=== PATIENT | female | born 1945 | race Caucasian/White ===

== ENCOUNTER 2017-02-28 17:05 | Inpatient (IN) | payer OTHER ==
[~2017-02-28] VITALS: Ht 157.5 cm; Wt 60.8 kg
--- NOTE | ~2017-02-28 | EKG ---
[address] [address] ELECTROCARDIOGRAM REPORT Name: SUPA REDD Room #: 446-P ADM IN M.R.#: [id number] Admission: 02/28/17 Attend Phys: Robb Salas MD Discharge: Date of : 47 Report #: [id number] THIS REPORT FOR: //name// [facility] ED Test Date: 2017-02-28 Test Time: 17:41:00 Pat Name: SUPA REDD Department: Room: Counts include 234 beds at the [facility] Gender: F Cook Chill Technician: Tahi BEGUM : 1945 Requested By: Peter Schmitz Order Number: [id number] MD: Anibal Sheridan Measurements Intervals [place] Rate: 82 P: -15 ID: 135 QRS: 53 QRSD: 99 T: 23 QT: 434 QTc: 507 Interpretive Statements Sinus rhythm Prolonged QT interval No previous ECG available for comparison Electronically Signed On 03-01-2017 11:09:16 CDT by Anibal Sheridan [email or web address] <ELECTRONICALLY SIGNED> By: Anibal Sheridan MD 03/01/17 1109 1741 1741 Anibal Sheridan MD /FLORINA
--- NOTE | ~2017-02-28 | EEG ---
[facility] [place] [address] ELECTROENCEPHALOGRAM Name: SUPA REDD Room #: 446-P [facility] IN M.R.#: [id number] Admission: 02/28/17 Attend Phys: Kieran Bagley Discharge: 03/02/17 Date of : 47 Report #: [id number] THIS REPORT FOR: //name// CC: Blaze Alcazar DATE OF EE03/02/2017. This patient is being evaluated for altered mental status. EEG was done by placing the electrodes by standard 10-20 system of electrode placement. Both referential and sequential montages were used for recording. Background activity in this patient's EEG goes up to about 9 Hz and 20 microvolts. This is a symmetrical activity. This patient goes to sleep and that is associated with bilaterally symmetrical sleep spindle and vertex sharp waves. Photic stimulation is unremarkable. The patient's EEG is intermixed with some delta range slowing on both sides, even when the patient is awake. IMPRESSION: This patient's EEG demonstrates some delta range slowing on both sides which is intermixed with the patient's background activity. That has a nonspecific abnormality, which can occur with dementia, encephalopathy, effect of psychotropic medication, etc. Clinical correlation is recommended. Thank you very much for this referral. By: [id number] Jeffrey Reyna MD /scot
--- NOTE | ~2017-02-28 | D ---
[facility] [place] [address] DISCHARGE SUMMARY Name: SUPA REDD Room #: 446-P ADM IN M.R.#: [id number] Admission: 02/28/17 Attend Phys: Quan Alcazar MD Discharge: Date of : 47 Report #: [id number] THIS REPORT FOR: //name// CC: Blaze Alcazar DATE OF SERVICE: 03/02/2017 The patient was admitted to the hospital on February 28. The patient is transferred to the [facility] on March 02. HISTORY OF PRESENT ILLNESS: The patient is a 71-year-old female who was found with altered mental status, and she was brought to the emergency room. She was found to have severe hyponatremia with sodium of 119, as well as hypokalemia. Per family members, the patient is usually alert and oriented x3. She is on hydrochlorothiazide at home. On admission, initial CT scan showed no acute findings, but repeat CT revealed subdural hematoma. Please refer to the admission H and P for details. HOSPITALIZATION COURSE: The patient was hospitalized at [facility]. Severe hyponatremia was believed secondary to hydrochlorothiazide as well as dehydration. Medication was discontinued, and the patient was started on IV fluids. Sodium started to improve, and currently sodium is 126. The patient had CT scan of the brain on admission, that was negative. Neurologist was consulted. Repeat CT scan showed subdural hematoma without midline shift. Due to neurosurgery service, decision was made to transfer the patient to [facility], where neurosurgery service is available. Currently, the patient's condition is satisfactory. She has been hemodynamically stable. As noted, sodium is 126, from 119 on admission. This is much better. Her potassium has also been replaced, and currently is 3.2, from 2.5. The patient is alert and awake, but she remains confused. Her physical examination and laboratory values are acceptable for her to be transferred to the different hospital. DISCHARGE DIAGNOSES: 1. Subdural hematoma based on the CAT scan, involving the left parietal and occipital region without significant mass effect. 2. Severe hyponatremia, likely due to combination of hydrochlorothiazide and dehydration. Current sodium is 126, from 119 on admission. 3. Severe hypokalemia, much better after replacement, currently potassium is 3.2, from 2.5 on admission. 4. Altered mental status, and metabolic encephalopathy, improving. The patient is much more alert, but remains confused at this time. [facility] [address] [place] [address] DISCHARGE SUMMARY Name: SUPA REDD Room #: 446-[facility] IN .R.#: [id number] Admission: 02/28/17 Attend Phys: Quan Alcazar MD Discharge: Date of : 47 Report #: [id number] 5. Anemia with low MCV. Normal B12 and folate levels. Iron studies are not available. 6. History of liver cirrhosis, suspected nonalcoholic steatohepatitis. 7. Diabetes mellitus type 2. 8. Hypertension, . DISCHARGE MEDICATIONS: Please refer to the medication reconciliation list in the patient's chart. As noted, hydrochlorothiazide will be discontinued. DISPOSITION: The patient is transferred to the [facility] for further evaluation and treatment. I spent more than 30 minutes to coordinate the patient's discharge from the hospital. By: [id number] Quan Alcazar MD /nt
[2017-02-28 17:24] VITALS: BP 100/76
[2017-02-28] MEDS ORDERED: HYDROCHLOROTHIA25 M2 PO (18:41)
[2017-02-28] MEDS ORDERED: PRAVASTATIN SOD80 MG PO (18:41)
[2017-02-28] MEDS ORDERED: CARDIZEM CD240 MG PO (18:42)
[2017-02-28] MEDS ORDERED: CVS CALCIUM 601 EAC2 PO (18:42)
[2017-02-28] MEDS ORDERED: FLONASE 0.05%50 MCG NASAL (18:43)
[2017-02-28 19:02] LABS: HEMATOCRIT 27.4 % (37.0-47.0); HEMOGLOBIN 9.4 gm/dL (12.0-15.0); MCH 24.5 pg (26.0-34.0); MCHC 34.2 g/dL (28.0-37.0); MCV 71.8 fL (80.0-100.0); PLATELET COUNT 194 thou/uL (150-400); RBC 3.82 mil/uL (4.20-5.00); WBC 2.7 thou/uL (4.0-11.0)
[2017-02-28 19:03] LABS: MANUAL DIFF YES
[2017-02-28 19:12] LABS: URINE BILIRUBIN NEGATIVE (Negative); URINE BLOOD 1+ (Negative); URINE COLOR YELLOW; URINE GLUCOSE-RANDOM* NEGATIVE (Negative); URINE KETONES NEGATIVE (Negative); URINE NITRITE NEGATIVE (Negative); URINE PROTEIN (DIPSTICK) NEGATIVE (Negative)
[2017-02-28 19:21] LABS: AMP/METHAMP Negative (Negative); BARBITURATES Negative (Negative); BENZODIAZEPINES Negative (Negative); COCAINE Negative (Negative); METHADONE Negative (Negative); OPIATES Negative (Negative); PCP Negative (Negative); THC Negative (Negative)
[2017-02-28 19:22] LABS: ALBUMIN 3.3 g/dL (3.4-5.0); ALKALINE PHOSPHATASE 76 U/L (46-116); BUN 13 mg/dL (7-18); CALCIUM 9.8 mg/dL (8.5-10.1); CHLORIDE 78 mmol/L (98-107); CO2 33 mmol/L (21-32); CREATININE 0.8 mg/dL (0.6-1.0); DIRECT BILIRUBIN 0.5 mg/dL (<0.1-0.3); GLUCOSE 121 mg/dL (74-106); SGOT 62 U/L (15-37); SGPT 45 U/L (30-65); TOTAL BILIRUBIN 1.7 mg/dL (<0.1-1.0); TOTAL PROTEIN 8.7 g/dL (6.4-8.2); TROPONIN-I < 0.04 ng/mL (<0.04-0.07)
[2017-02-28 19:22] LABS: BACTERIA 1-9 Few /HPF (None Seen); CASTS None Seen /LPF (None Seen); CRYSTALS None Seen /LPF (None Seen); SQUAMOUS 0-3 Few /LPF (0-3); URINE RBC 0-2 Rare /HPF (0-2); URINE WBC None Seen /HPF (0-5)
[2017-02-28 19:23] LABS: ANION GAP 8 mmol/L (7-16)
[2017-02-28 19:25] LABS: POTASSIUM 2.5 mmol/L (3.5-5.1); SODIUM 119 mmol/L (136-145)
[2017-02-28 19:52] LABS: ABSOLUTE NEUTROPHILS 1.3 thou/uL (1.4-8.2); ANISOCYTOSIS 2+; TOTAL CELL COUNT 100
[2017-02-28 20:44] VITALS: BP 110/51
[2017-02-28 21:26] VITALS: BP 136/62
[2017-02-28] MEDS ORDERED: PRINIVIL20 MG PO (23:02)
[2017-02-28 23:09] LABS: FOLIC ACID 16.4 ng/mL (8.6-58.9); TSH 0.41 uIU/mL (0.358-3.740)
[2017-02-28 23:58] LABS: CALCIUM 8.8 mg/dL (8.5-10.1); CREATININE 0.7 mg/dL (0.6-1.0)
[2017-03-01] VITALS (7 sets, daily range): BP systolic 110–168; BP diastolic 37–96
[2017-03-01 00:01] LABS: POTASSIUM 2.9 mmol/L (3.5-5.1)
[2017-03-01 05:47] LABS: HEMATOCRIT 27.3 % (37.0-47.0); HEMOGLOBIN 9.3 gm/dL (12.0-15.0); MCH 24.9 pg (26.0-34.0); MCHC 33.9 g/dL (28.0-37.0); MCV 73.5 fL (80.0-100.0); PLATELET COUNT 175 thou/uL (150-400); RBC 3.72 mil/uL (4.20-5.00); RDW 19.8 % (10.5-14.5); WBC 2.3 thou/uL (4.0-11.0)
[2017-03-01 05:54] LABS: MANUAL DIFF YES
[2017-03-01 06:12] LABS: ALBUMIN 3.1 g/dL (3.4-5.0); CALCIUM 8.5 mg/dL (8.5-10.1); CREATININE 0.7 mg/dL (0.6-1.0); TOTAL BILIRUBIN 1.4 mg/dL (<0.1-1.0); TOTAL PROTEIN 8.3 g/dL (6.4-8.2)
[2017-03-01 06:14] LABS: POTASSIUM 2.8 mmol/L (3.5-5.1)
[2017-03-01 06:44] LABS: IRON 115 ug/dL (50-170)
[2017-03-01 06:45] LABS: ANISOCYTOSIS 1+; HYPOCHROMASIA SLIGHT; MICROCYTES 2+; PLATELET ESTIMATE NORMAL; TOTAL CELL COUNT 100
[2017-03-01 06:57] LABS: % SATURATION 53 % (20-39); TIBC 216 ug/dL (250-450); UIBC 101 ug/dL
[2017-03-01 07:29] LABS: CHOLESTEROL 143 mg/dL (<200); HDL CHOLESTEROL 44 mg/dL (>40); LDL CHOLESTEROL 87 mg/dL (<100); TC:HDL 3.3 Ratio (Not establshd); TRIGLYCERIDE 62 mg/dL (<150); VLDL 12 mg/dL (<40)
[2017-03-02 01:05] LABS: GLYCOHEMOGLOBIN (HGB A1C) 5.1 % (4.8-5.6)
[2017-03-02 03:40] VITALS: BP 119/82
[2017-03-02 05:52] LABS: CALCIUM 7.8 mg/dL (8.5-10.1); CREATININE 0.6 mg/dL (0.6-1.0); POTASSIUM 3.2 mmol/L (3.5-5.1)
[2017-03-02 07:59] LABS: HEMATOCRIT 25.4 % (37.0-47.0); HEMOGLOBIN 8.5 gm/dL (12.0-15.0); MCH 24.8 pg (26.0-34.0); MCHC 33.4 g/dL (28.0-37.0); MCV 74.2 fL (80.0-100.0); PLATELET COUNT 150 thou/uL (150-400); RBC 3.42 mil/uL (4.20-5.00); WBC 2.1 thou/uL (4.0-11.0)
[2017-03-02 08:01] LABS: MANUAL DIFF YES
[2017-03-02 08:28] LABS: ABSOLUTE NEUTROPHILS 0.7 thou/uL (1.4-8.2); ATYPICAL LYMPHS 1 %; TOTAL CELL COUNT 100
[2017-03-02 08:29] VITALS: BP 143/72
[2017-03-02 08:31] LABS: ANISOCYTOSIS 2+
[2017-03-02 08:32] LABS: MICROCYTES 1+; POLYCHROMASIA SLIGHT
[2017-03-02 11:50] VITALS: BP 158/65
[2017-03-02] MEDS ORDERED: HYDRALAZINE20 MG/M1 IV PUSH (12:21)
== END 2017-03-02 14:27 | DRG 85 ==
LOC: ER 17:05 → 4S 20:06 → EROBS 20:06 → 4S 20:45
PROVIDERS: Family Medicine; Internal Medicine Endocrinology, Diabetes & Metabolism; Nurse Practitioner; Psychiatry & Neurology Neurology
DX: S06.5X0A Traumatic subdural hemorrhage without loss of consciousness, initial encounter (principal); G93.41 Metabolic encephalopathy; E87.1 Hypo-osmolality and hyponatremia; I10 Essential (primary) hypertension; E78.5 Hyperlipidemia, unspecified; E87.6 Hypokalemia; D64.9 Anemia, unspecified; E11.9 Type 2 diabetes mellitus without complications; Z60.2 Problems related to living alone; Z96.661 Presence of right artificial ankle joint; E83.42 Hypomagnesemia; E86.0 Dehydration; Z79.899 Other long term (current) drug therapy; X58.XXXA Exposure to other specified factors, initial encounter; Y93.89 Activity, other specified; Y92.89 Other specified places as the place of occurrence of the external cause; Y99.8 Other external cause status
CPT/HCPCS: 10100

== ENCOUNTER → 2017-05-13 | Outpatient (CLI) | payer OTHER ==
[~2017-05-13] MED LIST: CARDIZEM CD240 MG PO; CVS CALCIUM 601 EAC2 PO; FLONASE 0.05%50 MCG NASAL; HYDRALAZINE20 MG/M1 IV PUSH; HYDROCHLOROTHIA25 M2 PO; PRAVASTATIN SOD80 MG PO; PRINIVIL20 MG PO
== END ==
LOC: RAD 12:33
DX: R06.02 Shortness of breath (principal)